=== PATIENT | male | born 1975 | race Hispanic/Latino ===

== ENCOUNTER 2020-04-04 10:12 | Emergency (ER) | payer OTHER, BC ==
[~2020-04-04] VITALS: Ht 185.4 cm; Wt 114.3 kg
[~2020-04-04 10:12] MED LIST: KEFLEX500 MG PO
== END 2020-04-04 12:20 | disposition home or self-care (01) ==
LOC: ED 10:12
PROC: 0XQWXZZ Repair Left Little Finger, External Approach (ICD-10-PCS; principal; 2020-04-04)
DX: S61.217A Laceration without foreign body of left little finger without damage to nail, initial encounter (principal); Z23 Encounter for immunization; Z87.891 Personal history of nicotine dependence; W26.8XXA Contact with other sharp object(s), not elsewhere classified, initial encounter
CPT/HCPCS: 12002; 73140; 90471; 90715; 99283-25

== ENCOUNTER 2020-06-07 06:16 | Day surgery (SDC) | payer BC ==
[~2020-06-07] VITALS: Ht 185.4 cm; Wt 114.3 kg
[~2020-06-07 06:16] MED LIST changes: +PRILOSEC OTC20 MG PO
--- NOTE | 2020-06-07 07:49 | NUR ---
06/07/20 0749 Chandni Cool 0795 PATIENT ARRIVES TO PACU AWAKE BUT DROWSY. DENIES PAIN OR NAUSEA. RESP EVEN AND UNLABORED, NC TURNED OFF ON ARRIVAL TO PACU. ROOM AIR SATS >95%.
--- NOTE | 2020-06-07 09:38 | OR ---
[facility] [address] [place], [place] [address] Signed DATE OF OPERATION: 06/07/2020 SURGEON: Robert George MD PREOPERATIVE DIAGNOSES: 1. Change in voice (weak and raspy). 2. Daily alcohol use. 3. Heartburn. POSTOPERATIVE DIAGNOSES: 1. Mild gastroduodenitis. 2. Small hiatal hernia. 3. Mild distal esophagitis. 4. Vocal cord polyp (granulation tissue). PROCEDURES: EGD with CLOtest and biopsies of the pyloric bulb, antrum, GE junction, and distal esophagus. ESTIMATED BLOOD LOSS: None. INDICATIONS: Atilio is a 45-year-old gentleman, asked to see me for an upper endoscopy. He has had a change in his voice quality. He said in November of 2019 he had been working up in the [employer]. 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 He said it is worse in the mornings, but not always. He said his voice can weaken within a few minutes of talking. He said at one point he was up at 18 to 24 beers in a day, but he has cut it down to 3 to 6 beers a day at this point. He has been on omeprazole as well. He elevated the head of his bed. He thinks this has helped. However, his symptoms have persisted. Consequently, he was asked to see me with respect to the above. In the office, I gave a pamphlet on upper endoscopy and we looked at that together along with the risks including, but not limited to gas bloating, crampy abdominal pain, bleeding, perforation requiring surgery and missed diagnosis. We also discussed the need for IV conscious sedation. He had expressed understanding and wished to proceed. DESCRIPTION OF PROCEDURE: Atilio was taken into our endoscopy suite and placed in a supine semi-recumbent position. He was given IV sedation with 5 mg of Versed and 100 mcg of fentanyl. The posterior Electronically Signed By: ROBERT GEORGE MD 06/07/20 0938 PATIENT NAME: ATILIO CASTAÑEDA OPERATIVE REPORT DATE OF : 75 REPORT #: [id number] PHYSICIAN: ROBERT GEORGE MD PCP: JERSON MICHEL REPORT IS CONFIDENTIAL AND NOT TO BE RELEASED WITHOUT AUTHORIZATION [facility] [address] [place] [address] Signed oropharynx was anesthetized with lidocaine spray. A bite block was utilized for the case. The adult gastroscope was introduced and advanced out into the third portion of the duodenum under direct visualization of camera without difficulty. The duodenum was unremarkable. In the pyloric bulb, he had some very mild patchy erythematous changes. We took a biopsy from this area for pathologic review. The stomach also showed some very mild diffuse erythematous changes. We took a biopsy of the antrum for pathologic review as well as CLOtest. We saw no ulcerations. Upon retroflexion of scope, he does have just a small hiatal hernia. The scope was withdrawn up through the area of GE junction, which was compliant without stricture. There were no gastric or esophageal varices. He does have mild to moderate disruption to his Z-line and so we took a biopsy along the Z-line for pathologic review. In just above the Z-line in the distal esophagus, he had a few mild linear areas of irritation consistent with mild distal esophagitis. We went ahead and took a biopsy in this area as well. The middle and upper esophagus were unremarkable. The scope had been withdrawn into the posterior oropharynx. We could easily see a polypoid lesion on his vocal cord. It looks like granulation tissue seemed to be just a little bit of blood there. We taken several pictures of this for photodocumentation. After this, the gas was suctioned out and the gastroscope removed. Atilio tolerated the procedure quite well. RECOMMENDATIONS: I will see him back in my office in 7 to 14 days to review his results. He needs a referral to Ear, Nose, and Throat surgery for evaluation of his vocal cord lesion. Robert George MD ALB/MODL /[id number] cc: MD Jerson House FNP Copies: ROBERT GEORGE MD Electronically Signed By: ROBERT GEORGE MD 06/07/20 0938 PATIENT NAME: ATILIO CASTAÑEDA OPERATIVE REPORT DATE OF : 75 REPORT #: [id number] PHYSICIAN: ROBERT GEORGE MD PCP: JERSON MICHEL REPORT IS CONFIDENTIAL AND NOT TO BE RELEASED WITHOUT AUTHORIZATION [address] [address] Signed JERSON MICHEL ~ Electronically Signed By: ROBERT GEORGE MD 06/07/20 0938 PATIENT NAME: ATILIO CASTAÑEDA OPERATIVE REPORT DATE OF : 75 REPORT #: [id number] PHYSICIAN: ROBERT GEORGE MD PCP: JERSON MICHEL REPORT IS CONFIDENTIAL AND NOT TO BE RELEASED WITHOUT AUTHORIZATION
--- NOTE | 2020-06-08 15:44 | PATH ---
[facility] [address] [place], [place] [address] Signed SPECIMEN(S): A DUODENUM BULB SPECIMEN(S): B ANTRUM SPECIMEN(S): C GE JUNCTION SPECIMEN(S): D LOWER ESOPHAGUS SPECIMEN SOURCE: A. DUODENUM BULB B. ANTRUM C. GE JUNCTION D. LOWER ESOPHAGUS CLINICAL HISTORY: Vocal changes, heartburn. Dx: Hiatal hernia, distal esophagitis, gastroduodenitis, vocal cord polyp. MICROSCOPIC DESCRIPTION: Histologic sections of all submitted blocks are examined by light microscopy. These findings, together with the gross examination, support the pathologic diagnosis. FINAL PATHOLOGIC DIAGNOSIS: A. Duodenum, bulb, biopsy: - Duodenal mucosa with focal peptic injury. B. Stomach, antrum, biopsy: - Gastric antral mucosa with no significant pathologic changes. - Negative for Helicobacter pylori with HE stains. C. Gastroesophageal junction, biopsy: - Squamoglandular mucosa with chronic active inflammation and reactive epithelial changes; negative for intestinal metaplasia. D. Esophagus, lower, biopsy: - Esophageal squamous mucosa with reactive epithelial changes. BRP:mfr:C2NR GROSS DESCRIPTION: Four specimens are received in four containers, labeled "AR." A. The specimen, labeled "AR, 1," and designated on the requisition "duodenum bulb," is received in formalin and consists of one nguyen soft tissue fragment that measures 0.4cm in greatest dimension. The specimen is entirely submitted in cassette (A1). B. The specimen, labeled "AR, 2," and designated on the requisition "antrum," is received in formalin and consists of one nguyen soft tissue fragment that measures 0.3cm in greatest dimension. The PATIENT NAME: AUDREY CASTAÑEDA PATHOLOGY DATE OF : 75 REPORT #: [id number] PHYSICIAN: NATO TAVAREZ PCP: NUBIA MICHEL REPORT IS CONFIDENTIAL AND NOT TO BE RELEASED WITHOUT AUTHORIZATION [facility] [address] [place] [address] Signed specimen is entirely submitted in cassette (B1). C. The specimen, labeled "AR, 3," and designated on the requisition "GE junction," is received in formalin and consists of one nguyen soft tissue fragment that measures 0.3 cm in greatest dimension. The specimen is entirely submitted in cassette (C1). D. The specimen, labeled "AR, 4," and designated on the requisition "lower esophagus," is received in formalin and consists of one nguyen soft tissue fragment that measures 0.3 cm in greatest dimension. The specimen is entirely submitted in cassette (D1). AT (under the direct supervision of a pathologist) The Gross Description was prepared using a voice recognition system. The report was reviewed for accuracy; however, sound-alike word errors, addition and/or deletions may occur. If there is any question about this report, please contact Client Services. PERFORMING LABORATORY: The technical component was performed by [facility] [address] (Bereavement Coordinator: Haydee Morel MD; CLIA# [id number]). [facility] [address] [address] (CLIA# [id number]). Diagnostician: Savage Gould MD Pathologist Electronically Signed 06/08/2020 Copies: ~ PATIENT NAME: AUDREY CASTAÑEDA PATHOLOGY DATE OF : 75 REPORT #: [id number] PHYSICIAN: NATO TAVAREZ PCP: NUBIA MICHEL REPORT IS CONFIDENTIAL AND NOT TO BE RELEASED WITHOUT AUTHORIZATION
== END 2020-06-07 08:05 | disposition home or self-care (01) ==
LOC: OPS 06:16 → DS 06:16 → OPS 06:45 → DS 06-30 09:00
PROVIDERS: ATTEND Colon & Rectal Surgery
PROC: 0DB78ZX Excision of Stomach, Pylorus, Via Natural or Artificial Opening Endoscopic, Diagnostic (ICD-10-PCS; 2020-06-07)
PROC: 0DB38ZX Excision of Lower Esophagus, Via Natural or Artificial Opening Endoscopic, Diagnostic (ICD-10-PCS; 2020-06-07)
PROC: 0DB48ZX Excision of Esophagogastric Junction, Via Natural or Artificial Opening Endoscopic, Diagnostic (ICD-10-PCS; 2020-06-07)
PROC: 0DB98ZX Excision of Duodenum, Via Natural or Artificial Opening Endoscopic, Diagnostic (ICD-10-PCS; principal; 2020-06-07 06:45)
DX: K21.00 Gastro-esophageal reflux disease with esophagitis, without bleeding (principal); S36.400A Unspecified injury of duodenum, initial encounter; J38.1 Polyp of vocal cord and larynx; K44.9 Diaphragmatic hernia without obstruction or gangrene; E78.5 Hyperlipidemia, unspecified; Z79.899 Other long term (current) drug therapy
CPT/HCPCS: 86677; G0500; J2250; J3010; J7121

== ENCOUNTER 2020-07-19 08:59 | Day surgery (SDC) | payer BC ==
[~2020-07-19] VITALS: Ht 188 cm; Wt 110.9 kg
--- NOTE | ~2020-07-19 | OR ---
[facility] [address] [place], [place] [address] Draft DATE OF OPERATION: 07/19/2020 SURGEON: Rex De La Rosa MD PREOPERATIVE DIAGNOSIS: Vocal cord lesion. POSTOPERATIVE DIAGNOSIS: Vocal cord lesion. PROCEDURE: Direct laryngoscopy, excision of right vocal cord lesion. ANESTHESIA: General orotracheal. 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 PREOPERATIVE HISTORY: Atilio is a 45-year-old man with several months of voice changes, uses his voice excessively in the work in the [employer], yells a lot to communicate. Dr. Taylor performed an upper GI endoscopy a month or so ago and saw some abnormalities in his larynx. Exam in the office had shown a polypoid lesion in the anterior larynx, fleshy, reddish polyp and he is taken to the operating room for the above-mentioned procedures. OPERATIVE PROCEDURE AND FINDINGS: After informed consent, the patient was taken to the operating room, placed in the supine position where general orotracheal anesthesia was induced. The patient and procedure were verified. The patient was repositioned. Anterior commissure laryngoscope was used to visualize the hypopharynx and larynx. The only abnormality was in the anterior commissure. The lesion was an exophytic polypoid lesion measuring about 10-15% of the vocal cord length that was in the anterior commissure filling the anterior commissure with some gentle probing. It appeared that this was a lesion attached to the anterior right vocal cord not involving the anterior commissure. The laryngoscope was placed into suspension. The lesion was excised with cup forceps, sent to pathology in formalin. Minimal bleeding. The lesion was completely excised, appeared to be just mucosally based not invasive. Anterior commissure was not involved. The larynx and pharynx were suctioned clear of blood secretions. The scope was removed. The patient was awakened, extubated, transported to the recovery room in good condition. No PATIENT NAME: MATT CASTAÑEDAN OPERATIVE REPORT DATE OF : 75 REPORT #: [id number] PHYSICIAN: REX DE LA ROSA MD PCP: NBUIA MICHEL REPORT IS CONFIDENTIAL AND NOT TO BE RELEASED WITHOUT AUTHORIZATION [facility] [address] [place] [address] Draft complications. BLOOD LOSS: Minimal. SPECIMEN: To pathology. DRAINS: No drains. Rex De La Rosa MD GC/MODL /[id number] Copies: ~ PATIENT NAME: MATT CASTAÑEDAN OPERATIVE REPORT DATE OF : 75 REPORT #: [id number] PHYSICIAN: REX DE LA ROSA MD PCP: NUBIA MICHEL REPORT IS CONFIDENTIAL AND NOT TO BE RELEASED WITHOUT AUTHORIZATION
--- NOTE | 2020-07-19 10:33 | NUR ---
PT IS BACK TO DS FROM PACU. HE IS BACK TO HIS BASELINE, REPORTING MINIMAL PAIN. CALL LIGHT WITHIN REACH. WATER ON BEDSIDE TABLE, REQUESTING JELLO. NO ADDITIONAL NEEDS.
--- NOTE | 2020-07-19 10:36 | NUR ---
07/19/20 1036 Sheets,Antonette 1012 PT ARRIVED TO PACU ON RA AND DROWSY. VSS. PT COUGHING AND SMALL AMOUNT OF BLOOD NOTED IN TISSUE. PT SITTING IN HIGH FOLWERS AND DENIES PAIN AND NAUSEA. 1025 PT RESTING IN BED AND VSS. PT READY FOR TRANSFER. PT SIPPING SMALL AMOUNT OF WATER. 1030 VSS. REPORT TO ROMARIO RN.
--- NOTE | 2020-07-19 11:48 | NUR ---
PT TOLERATES JELLO. HE WOULD LIKE TO GET UP TO USE THE RESTROOM. HE IS ABLE TO AMBULATE HIMSELF TO AND FROM THE BATHROOM.
--- NOTE | 2020-07-19 12:05 | NUR ---
LE 1150: PT IS GIVEN VERBAL DC INSTRUCTIONS, HE VERBALIZES UNDERSTANDING. HE HAS NO QUESTIONS AT THIS TIME. HE IS EDUCATED ON HOW BEST TO DRESS HIMSELF. LE 1155: PT IS TAKEN TO [facility]LE VIA WC. HE IS ABLE TO TRANSFER HIMSELF FROM WC TO CAR.
--- NOTE | 2020-07-21 14:58 | PATH ---
[facility] [address] [facility] [place] [address] Signed SPECIMEN(S): A VOCAL CORD LESION SPECIMEN SOURCE: A. VOCAL CORD LESION CLINICAL HISTORY: Vocal cord lesion. Direct laryngoscopy biopsy vocal lesion. FINAL PATHOLOGIC DIAGNOSIS: Vocal cord lesion, biopsy: - Squamous fibroepithelial polyp with stromal hemosiderin laden macrophages and slight acute and chronic inflammation. - Negative for significant epithelial atypia. JVR:cml:C2NR MICROSCOPIC EXAMINATION: Histologic sections of all submitted blocks are examined by light microscopy. These findings, together with the gross examination, support the pathologic diagnosis. GROSS DESCRIPTION: The specimen is labeled "AR, A," and designated on the requisition "vocal cord lesion," is received in formalin and consists of nguyen-brown mucosal tissue fragments with clot material, measuring 1.4 x 0.6 x 0.3 cm in aggregate. The specimen is filtered and entirely submitted in cassette (A1). AT (under the direct supervision of a pathologist) The Gross Description was prepared using a voice recognition system. The report was reviewed for accuracy; however, sound-alike word errors, addition and/or deletions may occur. If there is any question about this report, please contact Client Services. PERFORMING LABORATORY: The technical component was performed by [facility], [address] [place] [address] (Account Engineer: Haydee Morel MD; CLIA# [id number]). [facility], [address] [place] [address] (Account Engineer: Sergio Gregory M.D.). Diagnostician: Sergio Gregory MD Pathologist PATIENT NAME: AUDREY CASTAÑEDA PATHOLOGY DATE OF : 75 REPORT #: [id number] PHYSICIAN: [facility] PCP: NUBIA MICHEL REPORT IS CONFIDENTIAL AND NOT TO BE RELEASED WITHOUT AUTHORIZATION [address] [address] Signed Electronically Signed 07/21/2020 Copies: ~ PATIENT NAME: AUDREY CASTAÑEDA PATHOLOGY DATE OF : 75 REPORT #: [id number] PHYSICIAN: [facility] PCP: NUBIA MICHEL REPORT IS CONFIDENTIAL AND NOT TO BE RELEASED WITHOUT AUTHORIZATION
== END 2020-07-19 11:55 | disposition home or self-care (01) ==
LOC: OPS 08:59 → DS 08:59 → OPS 10:30
PROVIDERS: ATTEND Otolaryngology
PROC: 0CJS8ZZ Inspection of Larynx, Via Natural or Artificial Opening Endoscopic (ICD-10-PCS; 2020-07-19)
PROC: 0CBT8ZZ Excision of Right Vocal Cord, Via Natural or Artificial Opening Endoscopic (ICD-10-PCS; principal; 2020-07-19 10:30)
DX: J38.1 Polyp of vocal cord and larynx (principal); J04.0 Acute laryngitis; E11.9 Type 2 diabetes mellitus without complications; Z87.891 Personal history of nicotine dependence
CPT/HCPCS: 00170; J1100; J1885; J2001; J2250; J2405; J2704; J3010; J7121

== ENCOUNTER 2021-12-13 06:43 | Emergency (ER) | payer OTHER ==
[~2021-12-13] VITALS: Ht 188 cm; Wt 150.0 kg
[2021-12-13] MEDS ORDERED: CYCLOBENZAPRINE10 MG PO (07:22)
== END 2021-12-13 07:47 | disposition home or self-care (01) ==
LOC: ED 06:43
DX: S39.012A Strain of muscle, fascia and tendon of lower back, initial encounter (principal); Z87.891 Personal history of nicotine dependence; W01.0XXA Fall on same level from slipping, tripping and stumbling without subsequent striking against object, initial encounter; Y99.0 Civilian activity done for income or pay
CPT/HCPCS: 99283

== ENCOUNTER 2024-02-23 09:09 | Emergency (ER) | payer BC ==
[~2024-02-23] VITALS: Ht 188 cm; Wt 110.9 kg
[~2024-02-23 09:09] MED LIST changes: +CYCLOBENZAPRINE10 MG PO; +FIBER500 MG PO; +FISH OIL 1,001000 MG PO; +ONE DAILY COMP1 EACH PO
[2024-02-23] MEDS ORDERED: ANUSOL-HC25 MG PR (10:50)
[2024-02-23 11:12] VITALS: BP 118/83
== END 2024-02-23 11:13 | disposition home or self-care (01) ==
LOC: ED 09:09
DX: K64.8 Other hemorrhoids (principal); Z87.891 Personal history of nicotine dependence; Z79.899 Other long term (current) drug therapy
CPT/HCPCS: 99283

== ENCOUNTER 2024-08-16 23:01 | Emergency (ER) | payer BC ==
[~2024-08-16] VITALS: Ht 188 cm; Wt 111.8 kg
[~2024-08-16 23:01] MED LIST changes: +ANUSOL-HC25 MG PR
[2024-08-16] MEDS ORDERED: ONDANSETRON 4 MG TAB ODT SL ONE (23:15)
[2024-08-17 00:36] LABS: INFLUENZA B NAA NEGATIVE (NEGATIVE); RESPIRATORY SYNCYTIAL VIR NAA NEGATIVE (NEGATIVE)
[2024-08-17] MEDS ORDERED: ONDANSETRON ODT8 MG PO (00:43)
[2024-08-17] MEDS ORDERED: ONDANSETRON 4 MG HOME.PACK SL ONE (01:00)
[2024-08-17] MEDS ORDERED: OSELTAMIVIR PHOSPHATE 75 MG HOME.PACK PO ONE (01:00)
[2024-08-17 01:13] VITALS: BP 138/82
== END 2024-08-17 01:13 | disposition home or self-care (01) ==
LOC: ED 23:01
PROVIDERS: Family Medicine
DX: J10.1 Influenza due to other identified influenza virus with other respiratory manifestations (principal); Z87.891 Personal history of nicotine dependence; Z11.52 Encounter for screening for COVID-19
CPT/HCPCS: 87502; 99283; A9270; U0002

== ENCOUNTER 2025-08-01 12:10 | Emergency (ER) | payer OTHER ==
[~2025-08-01] VITALS: Ht 188 cm; Wt 108.0 kg
[~2025-08-01 12:10] MED LIST changes: +ONDANSETRON ODT8 MG PO
[2025-08-01 12:53] LABS: BASOPHILS 0.1 % (0.2-1.2); EOSINOPHILS 0.7 % (0.8-7.0); LYMPHOCYTES 14.6 % (21.8-53.1); MCH 30.2 PG (25.7-32.2); MCHC 35.7 g/dL (32.3-36.5); MCV 84.7 fL (79.0-92.2); MONOCYTES 6.3 % (5.3-12.2); NEUTROPHILS 78.0 % (34.0-67.9); RBC 5.69 M/uL (4.63-6.08)
[2025-08-01] MEDS ORDERED: DIPHENOXYLATE/ATROPINE 1 EA TAB PO ONE (13:00)
[2025-08-01] MEDS ORDERED: SODIUM CHLORIDE 0.9% 1,000 ML IV ONE (13:00)
[2025-08-01 13:08] LABS: ALT (SGPT) 18.0 U/L (14-59); AST (SGOT) 14.0 U/L (15-37); GLOMERULAR FILTRATION RATE,EST 112.0 mL/min (>60); PROTEIN, TOTAL 8.1 g/dL (6.4-8.2); UREA NITROGEN 14.0 mg/dL (7-18)
[2025-08-01] MEDS ORDERED: LOMOTIL TABLET1 EACH PO (13:58)
[2025-08-01] MEDS ORDERED: ONDANSETRON ODT8 MG PO (13:58)
[2025-08-01 14:07] VITALS: BP 139/94
== END 2025-08-01 14:07 | disposition home or self-care (01) ==
LOC: ED 12:10
PROVIDERS: Emergency Medicine
DX: K52.9 Noninfective gastroenteritis and colitis, unspecified (principal); Z87.891 Personal history of nicotine dependence
CPT/HCPCS: 36415; 80053; 83735; 85025; 96361; 96374; 99284-25; J2405; J7030